=== PATIENT | female | born 1960 | race Caucasian/White ===

== ENCOUNTER 2016-12-19 05:41 | Day surgery (SDC) | payer BC ==
[~2016-12-19] VITALS: Ht 157.5 cm; Wt 100.7 kg
--- NOTE | ~2016-12-19 | OR ---
PATIENT'S NAME: GATO MUSA [facility] AGE: 56 Y [address] ROOM: [place] [id number] LOCATION: [facility] [place] ADMIT DATE: 12/19/2016 OR/Procedure Report DISCHARGE DATE: 12/19/2016 FAMILY PHYSICIAN: Kyle Cisneros MD ATTENDING PHYSICIAN: Josué Slaughter V SURGEON: Josué Slaughter MD PERSONAL CARE WORKER: Tan Hill MD-Window Glass Installer V DATE OF PROCEDURE: 12/19/2016 DICTATED BY: Tan Hill MD-Student PROCEDURE PERFORMED: CO2 laser micro direct laryngoscopy with biopsy. PREOPERATIVE DIAGNOSIS: Left true vocal fold lesion. POSTOPERATIVE DIAGNOSIS: Left true vocal fold lesion. ANESTHESIA: General endotracheal anesthesia. ESTIMATED BLOOD LOSS: Minimal. SPECIMENS: Left true vocal fold lesions. FINDINGS: A pedunculated mass on the left true vocal fold. The remainder of the visualized larynx was normal in appearance. 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 She is noted to have some increasing hoarseness and a flexible laryngoscopy showed a mass to the left true vocal fold. She is here today for micro direct laryngoscopy with CO2 laser. DESCRIPTION OF PROCEDURE: The patient was taken to the operating room and placed on the operating room table. General endotracheal anesthesia was induced without any difficulty. A time-out was performed identifying the patient as well as the procedure to be performed. All pressure points were padded and bilateral sequential compression stockings were placed. The bed was then rotated 90 degrees. A Albin laryngoscope was used for this examination. It was used to expose the endolarynx. The upper maxillary dentition was padded with a tooth guard. After exposure, the microscope was brought in and the patient was placed into suspension. We used the probe to probe the lesion which was on the medial surface of the vocal fold. It was grasped with a cup forceps and then amputated using a straight scissor. This passed off for permanent pathology. We then used the CO2 OmniGuide laser for ablation of the base of the lesion. We used 4 Capellan in continuous setting. PATIENT'S NAME: GATO MUSA [facility] AGE: 56 Y [address] ROOM: [place] [id number] LOCATION: [facility] [place] ADMIT DATE: 12/19/2016 OR/Procedure Report DISCHARGE DATE: 12/19/2016 FAMILY PHYSICIAN: Kyle Cisneros MD ATTENDING PHYSICIAN: Josué Slaughter V Hemostasis was achieved with the CO2 laser. This marked the conclusion of the procedure. All sponge counts were correct. All instrumentation was removed from the patient and she was passed back to Anesthesia where she was extubated without any difficulty and transported to the PACU in stable condition. JOSUÉ SLAUGHTER MD TVC/modl /[id number] d: 12/19/16 1456 t: 12/22/16 1844, OPERATIVE SUMMARY
[~2016-12-19 05:41] MED LIST: FLONASE 50 MCG/16 GM NOSE; LEVOTHROID (S150 MCG PO
[2016-12-19 06:45] LABS: ALBUMIN 3.2 gm/dL (3.5-5.0); ANION GAP 11.1 (10.0-19.0); CALCIUM 8.3 mg/dL (8.5-10.5); CREATININE 0.8 mg/dL (0.5-1.1); POTASSIUM 4.1 mMol/L (3.7-5.1); TOTAL BILIRUBIN 0.7 mg/dL (0.0-1.5); TOTAL PROTEIN 6.9 g/dL (6.0-8.4)
[2016-12-19] MEDS ORDERED: SYMBICORT 16010.2 GM INH (09:53)
== END 2016-12-19 10:22 | disposition disaster alternative care site (69) ==
LOC: GSDC 05:41 → GMSU 05:41 → GSDC 09:00
PROVIDERS: Otolaryngology
PROC: 0CBV8ZX Excision of Left Vocal Cord, Via Natural or Artificial Opening Endoscopic, Diagnostic (ICD-10-PCS; principal; 2016-12-19)
DX: J38.3 Other diseases of vocal cords (principal); Z79.899 Other long term (current) drug therapy; Z98.51 Tubal ligation status; Z98.890 Other specified postprocedural states
CPT/HCPCS: J0171; J1100; J2001; J7030